=== PATIENT | male | born 2000 ===

== ENCOUNTER 2020-07-11 21:52 | Outpatient (REF) | payer OTHER, SELFPAY ==
[2020-07-15 21:54] LABS: SARS-CoV-2 RNA Undetected (Undetected); SARS-CoV-2 Specimen Source Nasal
== END 2020-07-11 22:12 ==
LOC: NCHCN 21:52
PROVIDERS: Visit Provider Nurse Practitioner Family
DX: Z20.828 Contact with and (suspected) exposure to other viral communicable diseases (principal)
CPT/HCPCS: U0003